=== PATIENT | female | born 1990 | race Hispanic/Latino ===

== ENCOUNTER 2019-11-22 08:01 | Inpatient (IN) | payer MEDICAID, OTHER ==
[~2019-11-22] VITALS: Ht 149.9 cm; Wt 51.7 kg
[2019-11-22 08:54] LABS: MEAN CORPUSCULAR HEMOGLOBIN 26.4 pg (27.0-33.0); MEAN CORPUSCULAR HGB CONC 31.3 g/dL (32.0-36.0); MEAN CORPUSCULAR VOLUME 84.2 fL (79-99); RED BLOOD CELL COUNT(AUTO) 3.68 MIL/uL (4.00-5.50); RED CELL DISTRIBUTION WIDTH 17.4 % (11.0-15.5); WHITE BLOOD COUNT (AUTO) 5.1 K/uL (4.8-10.8)
[2019-11-22] MEDS ORDERED: LACTATED RINGERS 1000ML 1,000 ML IV SCH ×2 (09:00→17:38)
[2019-11-22] MEDS ORDERED: CEFAZOLIN SODIUM 1 GM VIAL IVP PRN (09:00)
[2019-11-22] MEDS ORDERED: CALDOLOR 800MG+NS 250ML 250 ML IV PRN (09:00)
[2019-11-22 09:05] LABS: APPEARANCE,URINE Clear (CLEAR); BILIRUBIN,URINE Negative (NEGATIVE); COLOR,URINE Yellow (YELLOW); GLUCOSE, URINE (UA) Negative (NEGATIVE); KETONES,URINE Negative (NEGATIVE); LEUKOCYTE ESTERASE ,URINE Negative (NEGATIVE); NITRATE,URINE Negative (NEGATIVE); OCCULT BLOOD,URINE Negative (NEGATIVE); PROTEIN,URINE Negative (NEGATIVE); UROBILINOGEN,URINE 0.2 mg/dL (0.2-1.0)
[2019-11-22 09:13] LABS: AMPHET/METH SCREEN,URINE NEGATIVE (NEGATIVE); BARBITURATE SCREEN, URINE NEGATIVE (NEGATIVE); BENZODIAZEPINES SCREEN,URINE NEGATIVE (NEGATIVE); CANNABINOID SCREEN,URINE NEGATIVE (NEGATIVE); COCAINE SCREEN,URINE POSITIVE (NEGATIVE); OPIATE SCREEN,URINE NEGATIVE (NEGATIVE); PHENCYCLIDINE SCREEN,URINE NEGATIVE (NEGATIVE)
[2019-11-22] MEDS ORDERED: DURAMORPH PF1 MG/ML 10ML AMP IV ONE (10:19)
[2019-11-22] MEDS ORDERED: CEFAZOLIN SODIUM 1 GM VIAL IVP ONE (10:20)
[2019-11-22] MEDS ORDERED: PROMETHAZINE HCL 25 MG/ML 1ML AMPULE IM PRN (11:00)
[2019-11-22] MEDS ORDERED: OXYTOCIN-LR 20 UNITS/1000 ML 1,000 ML IV PRN (11:00)
[2019-11-22] MEDS ORDERED: MEPERIDINE-PF 75 MG/ML SYG IM PRN (11:00)
[2019-11-22] MEDS ORDERED: DEXTROSE 5 %-0.45 % NACL 1,000 ML IV PRN (11:00)
[2019-11-22 12:25] VITALS: BP 105/66
[2019-11-22] MEDS ORDERED: PREN-154 PO (12:58)
[2019-11-22] MEDS ORDERED: FERR-82 PO (12:58)
[2019-11-22] MEDS ORDERED: MEPERIDINE-PF 50 MG/ML SYG ONE (14:29)
[2019-11-22] MEDS ORDERED: MEPERIDINE-PF 25 MG/ML SYG ONE (14:29)
--- NOTE | 2019-11-22 15:29 | NUR ---
+UDS Mar,, JUL, On Admission, OPEN CPS CASE Sw met with pt and common law of 5yrs Clive Davenport [phone]. They have 2 sons together Clive Song 4yro, BHAVNA Crumpelia Davenport. Pt has 2 older children, Joseph Cabrales 11 and Mary Jo Velez 8. They live in rental home, pt unemployed, has Medicaid, WIC and Food stamp assistance. Couple has basic items for NB and car seat. Dr Martinez will follow baby after dc. Children are staying with pt's sister while pt is admitted. pt will have help at dc, Pt admits to cocaine use during , states she has an open CPS case with Martha Landrum [phone]. Pt made aware that I will call Martha and see what plan is for discharging baby. Parents voiced understanding. SW spoke to Martha at CPS. Per Martha, pt tested positive Mar and now.Martha aware that pt will dc tomorrow and baby will stay for observation Martha to call in am for UDS results on baby. NEW CPS report made on NB to Nakul alex [phone] # [id number] Layla, baby nurse made aware of above Addendum: 11/22/19 at 1543 by RAIS CHASE Amended: Links added.
[2019-11-22] MEDS ORDERED: NALOXONE HCL 0.4 MG/1 ML ML ONE (16:41)
--- NOTE | 2019-11-22 16:45 | NUR ---
PT DIFFICULT TO AROUSE FROM SLEEP. PT TAPPED AND DIFFICULT TO WAKE FROM SLEEP. ONCE PT PT AWAKE, PT VERY DROWSY. V/S STABLE AT THIS TIME. WILL CONTINUE TO MONITOR.
[2019-11-22 16:58] LABS: HEMATOCRIT 31.7 % (36-48)
[2019-11-22 17:15] VITALS: BP 130/91
--- NOTE | 2019-11-22 17:15 | NUR ---
PT CONTINUED TO BE MONITORED. RESPIRATIONS AT 10 PER MINUTE AND PT STILL VERY DROWSY. NASH MULLINS CRNA NOTIFIED AND NARCAN 0.1MG IV GIVEN AT THIS TIME. PT BECAME MORE RESPONSIVE AND RESPIRATIONS UP TO 13 PER MINUTE. PT ORIENTED AGAIN. PT STATED WAS NOT FEELING WELL AND STATED "I FEEL SCARED." B/P BECAME ELEVATED TO 150'S/100'S. SMALL TWITCH DEVELOPED EVERY MINUTE AND DTR'S AT 3+. DENIED BLURRY VISION OR HEADACHE. SIDE RAILS PADDED AT THIS TIME.
--- NOTE | 2019-11-22 17:30 | NUR ---
DR. VALERIO LINDSEY NOTIFIED OF PT CONDITION AND ORDERS RECEIVED TO TRANSFER PT TO L&D.
[2019-11-22] MEDS ORDERED: MAGNESIUM SULFATE 1,000 ML IV PRN (17:38)
[2019-11-22] MEDS ORDERED: CALCIUM GLUCONATE 1 GM/10 ML VIAL IV PRN (17:45)
[2019-11-22] MEDS ORDERED: MAGNESIUM 4GM PREMIX 100ML 100 ML IV PRN (17:45)
--- NOTE | 2019-11-22 18:10 | NUR ---
PT TRANSFERRED TO L&D FOR INITIATION OF MAGNESIUM AND CONTINUITY OF CARE. REPORT GIVEN TO DEVIN TOMLIN RN.
[2019-11-22 22:33] LABS: BASOPHILS % (AUTO) 0.3 % (0.0-5.0); EOSINOPHILS % (AUTO) 0.4 % (0.0-8.0); HEMATOCRIT 33.5 % (36-48); LYMPHOCYTES % (AUTO) 11.9 % (21.0-51.0); MEAN CORPUSCULAR HEMOGLOBIN 25.9 pg (27.0-33.0); MEAN CORPUSCULAR HGB CONC 30.7 g/dL (32.0-36.0); MEAN CORPUSCULAR VOLUME 84.2 fL (79-99); MONOCYTES % (AUTO) 5.9 % (3.0-13.0); PLATELET COUNT (AUTO) 182 K/uL (130-400); RED BLOOD CELL COUNT(AUTO) 3.98 MIL/uL (4.00-5.50); RED CELL DISTRIBUTION WIDTH 17.7 % (11.0-15.5); WHITE BLOOD COUNT (AUTO) 7.3 K/uL (4.8-10.8)
[2019-11-22 22:39] LABS: CREATININE 0.6 mg/dL (0.5-1.5); POTASSIUM 3.8 mmol/L (3.5-5.1)
[2019-11-22 22:41] LABS: INR 0.85 (0.85-1.15); PARTIAL THROMBOPLASTIN TIME 26.8 SEC (26.3-35.5); PROTHROMBIN TIME 9.2 SEC (9.6-11.6)
[2019-11-22 22:43] LABS: ALBUMIN 1.9 g/dL (3.5-5.0); BILIRUBIN,TOTAL 0.5 mg/dL (0.2-1.0); TOTAL PROTEIN, SERUM 5.3 g/dL (6.0-8.3); URIC ACID 4.9 mg/dL (2.6-7.2)
[2019-11-23 06:26] LABS: HEMATOCRIT 30.8 % (36-48); MEAN CORPUSCULAR HEMOGLOBIN 25.8 pg (27.0-33.0); MEAN CORPUSCULAR HGB CONC 30.5 g/dL (32.0-36.0); MEAN CORPUSCULAR VOLUME 84.6 fL (79-99); RED BLOOD CELL COUNT(AUTO) 3.64 MIL/uL (4.00-5.50); RED CELL DISTRIBUTION WIDTH 17.8 % (11.0-15.5); WHITE BLOOD COUNT (AUTO) 6.9 K/uL (4.8-10.8)
[2019-11-23 10:10] LABS: HEPATITIS Bs ANTIGEN SCREEN P Negative (Negative)
[2019-11-23] MEDS ORDERED: DIPH,PERTUSS(ACELL),TET VAC/PF 0.5 ML VIAL IM SCH (10:45)
[2019-11-23] MEDS ORDERED: LANOLIN 30GM OINTMENT TP PRN (10:45)
[2019-11-23] MEDS ORDERED: BISACODYL 10 MG SUPP.RECT RC PRN (10:45)
[2019-11-23] MEDS ORDERED: HYDROCODONE/ACETAMINOPHEN 5/325 MG TAB PO PRN (10:45)
[2019-11-23] MEDS ORDERED: ACETAMINOPHEN-CODEINE 300/30MG TAB PO PRN (10:45)
[2019-11-23] MEDS ORDERED: ACETAMINOPHEN EXTRA STRENGTH 500 MG TABLET PO PRN (10:45)
[2019-11-23 11:49] VITALS: BP 129/88
[2019-11-23] MEDS: SIMETHICONE 80 MG TAB.CHEW PO PRN ×2 (11:55→21:10)
[2019-11-23] MEDS: IBUPROFEN 800 MG TAB PO SCH ×2 (11:56→20:07)
[2019-11-23 17:30] VITALS: BP 125/80
[2019-11-23 19:40] VITALS: BP 133/77
[2019-11-23] MEDS: DOCUSATE SODIUM 100 MG CAP PO SCH (21:09)
[2019-11-23 23:40] VITALS: BP 128/70
[2019-11-24 03:35] VITALS: BP 122/79
[2019-11-24] MEDS: IBUPROFEN 800 MG TAB PO SCH (03:45)
[2019-11-24 07:30] VITALS: BP 115/75
[2019-11-24] MEDS: DOCUSATE SODIUM 100 MG CAP PO SCH (08:52)
[2019-11-24] MEDS: SIMETHICONE 80 MG TAB.CHEW PO PRN (08:52)
[2019-11-24 11:41] VITALS: BP 103/69
--- NOTE | 2019-11-24 13:35 | NUR ---
PATIENT LEFT UNIT VIA WHEELCHAIR WITH BELONGINGS IN HAND. PERSONAL VEHICLE USED FOR TRANSPORTATION. BABY STAYING IN NURSERY.
== END 2019-11-24 13:35 | disposition home or self-care (01) | DRG 788 ==
LOC: EDH 08:01 → LDH 08:02 → OBSVTOIN 08:02 → WSH 12:20 → LDH 18:00 → WSH 18:00
PROVIDERS: ADMIT Obstetrics & Gynecology; ATTEND Obstetrics & Gynecology
PROC: 3E0234Z Introduction of Serum, Toxoid and Vaccine into Muscle, Percutaneous Approach (ICD-10-PCS; 2019-11-22)
PROC: 10D00Z1 Extraction of Products of Conception, Low, Open Approach (ICD-10-PCS; principal; 2019-11-22 10:15)
DX: O34.211 Maternal care for low transverse scar from previous cesarean delivery (principal); Z37.0 Single live birth; Z23 Encounter for immunization; Z3A.38 38 weeks gestation of pregnancy
CPT/HCPCS: 36415; 59510; 80053; 80305; 81003; 84550; 85014; 85018; 85025; 85027; 85384; 85610; 85730; 86592; 86701; 86850; 86900; 86901; 87340; 87390; 90715; A4344; G0378; J0690; J1741; J2175; J2274; J2310; J2550; J2590; J3475; J7120

== ENCOUNTER 2019-12-12 05:12 | Inpatient (IN) | payer MEDICAID, OTHER ==
[~2019-12-12] VITALS: Ht 149.9 cm; Wt 43.6 kg
[~2019-12-12 05:12] MED LIST: FERR-82 PO; PREN-154 PO
[2019-12-12] MEDS ORDERED: LEVETIRACETAM 500 MG/5 ML SD VIAL IV ONE (05:21)
[2019-12-12 05:31] LABS: BASOPHILS % (AUTO) 0.8 % (0.0-5.0); EOSINOPHILS % (AUTO) 3.3 % (0.0-8.0); HEMATOCRIT 34.6 % (36-48); LYMPHOCYTES % (AUTO) 29.1 % (21.0-51.0); MEAN CORPUSCULAR HEMOGLOBIN 26.8 pg (27.0-33.0); MEAN CORPUSCULAR HGB CONC 31.8 g/dL (32.0-36.0); MEAN CORPUSCULAR VOLUME 84.2 fL (79-99); NEUTROPHILS % (AUTO) 61.4 % (40.0-77.0); PLATELET COUNT (AUTO) 281 K/uL (130-400); RED BLOOD CELL COUNT(AUTO) 4.11 MIL/uL (4.00-5.50); RED CELL DISTRIBUTION WIDTH 18.2 % (11.0-15.5); WHITE BLOOD COUNT (AUTO) 5.2 K/uL (4.8-10.8)
[2019-12-12 05:46] LABS: APPEARANCE,URINE Clear (CLEAR); BILIRUBIN,URINE Negative (NEGATIVE); COLOR,URINE Yellow (YELLOW); GLUCOSE, URINE (UA) Negative (NEGATIVE); KETONES,URINE Negative (NEGATIVE); LEUKOCYTE ESTERASE ,URINE Negative (NEGATIVE); NITRATE,URINE Negative (NEGATIVE); OCCULT BLOOD,URINE Small (NEGATIVE); PROTEIN,URINE Negative (NEGATIVE)
[2019-12-12 05:50] LABS: HCG,QUAL RESULT NEGATIVE (NEGATIVE)
[2019-12-12 05:51] LABS: CREATININE 0.5 mg/dL (0.5-1.5); POTASSIUM 3.1 mmol/L (3.5-5.1)
[2019-12-12 05:55] LABS: ALBUMIN 3.2 g/dL (3.5-5.0); BILIRUBIN,TOTAL 0.1 mg/dL (0.2-1.0); TOTAL PROTEIN, SERUM 7.2 g/dL (6.0-8.3)
[2019-12-12 05:55] LABS: AMPHET/METH SCREEN,URINE NEGATIVE (NEGATIVE); BARBITURATE SCREEN, URINE NEGATIVE (NEGATIVE); BENZODIAZEPINES SCREEN,URINE NEGATIVE (NEGATIVE); CANNABINOID SCREEN,URINE NEGATIVE (NEGATIVE); COCAINE SCREEN,URINE NEGATIVE (NEGATIVE); OPIATE SCREEN,URINE NEGATIVE (NEGATIVE); PHENCYCLIDINE SCREEN,URINE NEGATIVE (NEGATIVE)
[2019-12-12 05:57] LABS: BACTERIA,URINE None Seen /HPF (None Seen); RBC,URINE 0-1 /HPF (0-1); WBC,URINE 0-1 /HPF (0-1)
[2019-12-12] MEDS ORDERED: MAGNESIUM 2GM PREMIX 50ML 50 ML IV ONE (06:20)
[2019-12-12] MEDS ORDERED: THIAMINE HCL 100 MG TABLET PO SCH (09:15)
[2019-12-12] MEDS ORDERED: FOLIC ACID 1 MG TABLET PO SCH (09:15)
[2019-12-12] MEDS ORDERED: COMPOUND IV MISC 1 EACH IVSOLN MISC PRN (14:00)
[2019-12-13] MEDS ORDERED: POTASSIUM CHLORIDE 20MEQ/100ML 100 ML IV PRN (05:30)
[2019-12-13] MEDS ORDERED: POTASSIUM CHLORIDE 10% ELIXIR 20 MEQ/15 ML UDCUP PO PRN (05:30)
[2019-12-13] MEDS ORDERED: LIDOCAINE HCL-MPF 1% 2ML VIAL IJ PRN (05:30)
[2019-12-13 07:13] LABS: CREATININE 0.6 mg/dL (0.5-1.5); POTASSIUM 3.5 mmol/L (3.5-5.1)
[2019-12-13 09:10] VITALS: BP 103/73
[2019-12-13] MEDS: LEVETIRACETAM 500 MG in SODIUM CHLORIDE 0.9% 100 ML IV SCH ×3 (10:28→17:32)
[2019-12-13] MEDS ORDERED: GADODIAMIDE 10 MMOL/20 ML VIAL IV ONE (11:01)
[2019-12-13] MEDS: FOLIC ACID 1 MG TABLET PO SCH (11:03)
[2019-12-13] MEDS: MULTIVITAMIN TABLET PO SCH (11:03)
[2019-12-13] MEDS: POTASSIUM CHLORIDE 20 MEQ ERTAB PO PRN ×2 (11:04→12:36)
[2019-12-13 11:45] VITALS: BP 112/75
[2019-12-13] MEDS: M.V.I. IV [ADULT] 10 ML, FOLIC ACID 1 MG, THIAMINE HCL 100 MG in SODIUM CHLORIDE 0.9% 1... IV SCH (12:20)
[2019-12-13] MEDS: THIAMINE HCL 100 MG TABLET PO SCH (12:36)
--- NOTE | 2019-12-13 12:44 | NUR ---
DCP: HOME WITH FAMILY Sw met with pt who is and has 4 kids, ages 11,8,4, and NB who is 3weeks old. Pt's Clive Davenport [phone] and sister in law caring for the children while pt is admitted. Pt reports she was at a family gathering for her uncle's passing and had some alcoholic beverages when seizures occurred. Pt denies that she drinks on regular basis or that she need referral or intervention for alcohol abuse. Pt states she is independent, no DME or in home care services. Pt is seen at [facility] for care and meds. Plan is home at ri Addendum: 12/13/19 at 1302 by ARIS CHASE Amended: Links added.
[2019-12-13 16:30] VITALS: BP 108/67
[2019-12-13 20:38] VITALS: BP 108/61
[2019-12-14] VITALS: BP 103/61
[2019-12-14 03:36] VITALS: BP 101/60
[2019-12-14] MEDS: LEVETIRACETAM 500 MG in SODIUM CHLORIDE 0.9% 100 ML IV SCH (05:45)
[2019-12-14] MEDS: MULTIVITAMIN TABLET PO SCH (08:26)
[2019-12-14] MEDS: THIAMINE HCL 100 MG TABLET PO SCH (08:26)
[2019-12-14] MEDS: FOLIC ACID 1 MG TABLET PO SCH (08:27)
[2019-12-14 08:30] VITALS: BP 98/61
[2019-12-14] MEDS: M.V.I. IV [ADULT] 10 ML, FOLIC ACID 1 MG, THIAMINE HCL 100 MG in SODIUM CHLORIDE 0.9% 1... IV SCH (09:57)
--- NOTE | 2019-12-14 11:00 | NUR ---
DR. MORGAN CONSULTATION CALLED TO OFFICE. DR. MORGAN WILL BE MADE AWARE.
[2019-12-14 11:56] VITALS: BP 104/55
[2019-12-14] MEDS ORDERED: MVIT PO (14:16)
[2019-12-14] MEDS ORDERED: THIA100T91 PO (14:16)
[2019-12-14] MEDS ORDERED: LEVE-43 PO (14:18)
--- NOTE | 2019-12-14 18:00 | NUR ---
DISCHARGE DISCHARGE PAPERWORK DISCUSSED WITH THE PATIENT AT THIS TIME. PATIENT UNDERSTOOD IMPORTANCE OF OBTAINING PRESCRIPTION MEDICATIONS TODAY AND GOING TO ALL FOLLOW UP APPOINTMENTS. PATIENT VERBALIZED UNDERSTANDING OF INSTRUCTIONS. TAKEN DOWN TO ER BY OBSTETRICS GYN PHYSICIAN AT THIS TIME. IV AND TELE DISCONTINUED.
== END 2019-12-14 18:00 | disposition home or self-care (01) | DRG 776 ==
LOC: EDH 05:12 → EDHIP 05:13 → 4BH 12-13 09:17
PROVIDERS: ADMIT Internal Medicine; ATTEND Internal Medicine
DX: O99.355 Diseases of the nervous system complicating the puerperium (principal); G93.41 Metabolic encephalopathy; O99.315 Alcohol use complicating the puerperium; O14.95 Unspecified pre-eclampsia, complicating the puerperium; G40.409 Other generalized epilepsy and epileptic syndromes, not intractable, without status epilepticus; F10.129 Alcohol abuse with intoxication, unspecified; Y90.7 Blood alcohol level of 200-239 mg/100 ml; Z20.828 Contact with and (suspected) exposure to other viral communicable diseases; Z79.899 Other long term (current) drug therapy; Z98.891 History of uterine scar from previous surgery
CPT/HCPCS: 36415; 70450; 70544; 70551; 70553; 80048; 80053; 80305; 81001; 81025; 82550; 83605; 83690; 83735; 84145; 84484; 85025; 87635; 93005; A9579; G0378; G0480; J1953; J3411; J3475; J3490; J7030